=== PATIENT | male | born 1945 | race Two or more races ===

== ENCOUNTER 2017-11-06 13:54 | Emergency (ER) | payer OTHER, MEDICAID ==
[~2017-11-06] VITALS: Ht 167.6 cm; Wt 77.1 kg
[2017-11-06 15:05] VITALS: BP 134/75
== END 2017-11-06 16:19 | disposition home or self-care (01) ==
LOC: ER 13:59
DX: R33.9 Retention of urine, unspecified (principal)
CPT/HCPCS: 51702

== ENCOUNTER 2017-11-16 20:38 | Emergency (ER) | payer OTHER, MEDICAID ==
[~2017-11-16] VITALS: Ht 167.6 cm; Wt 81.2 kg
[2017-11-17 02:45] VITALS: BP 141/82
[2017-11-17 04:03] LABS: Urine Bacteria FEW /hpf (None Seen); Urine Blood TRACE /uL (Negative); Urine Hyaline Cast FEW /lpf (0 - 2); Urine Specific Gravity 1.013 (1.001-1.035); Urine WBC 7 /hpf (0 - 3)
== END 2017-11-17 04:09 | disposition home or self-care (01) ==
LOC: ER 20:38
DX: T83.89XA Other specified complication of genitourinary prosthetic devices, implants and grafts, initial encounter (principal); N40.0 Benign prostatic hyperplasia without lower urinary tract symptoms; N39.0 Urinary tract infection, site not specified
CPT/HCPCS: 81001

== ENCOUNTER 2017-12-08 00:43 | Emergency (ER) | payer OTHER, MEDICAID ==
[~2017-12-08] VITALS: Ht 167.6 cm; Wt 81.2 kg
[2017-12-08 00:59] VITALS: BP 157/76
[2017-12-08 01:28] LABS: Basophils # (auto) 0 uL; Basophils % (auto) 0.1 % (0.0-2.0); Eosinophils # (auto) 0.1 uL; Eosinophils % (auto) 0.8 % (0.0-7.0); Hemoglobin 13.6 g/dL (13.5-17.5); Lymphocytes # (auto) 2.2 uL; Lymphocytes % (auto) 27.5 % (10.0-50.0); Mean Corpuscular Volume 91.2 fL (80.0-100.0); Monocytes # (auto) 0.7 uL; Monocytes % (auto) 9.4 % (0.0-12.0); Neutrophils # (auto) 4.9 uL; Neutrophils % (auto) 62.2 % (37.0-80.0); Nucleated Red Blood Cells % 0.1 %; Platelet Count (auto) 259 10^3/uL (140-450); Red Blood Cells 4.39 10^6/uL (4.5-5.90); Red Cell Distribution Width 13.5 % (11.8-14.3); White Blood Cell 7.8 10^3/uL (4.4-10.8)
[2017-12-08 01:54] LABS: Albumin 3.8 g/dL (3.4-5.0); BUN/Creatinine Ratio 13.2; Calcium 8.5 mg/dL (8.5-10.1); Potassium 3.7 mmol/L (3.5-5.1)
[2017-12-08 01:57] LABS: Bilirubin, Total 0.9 mg/dL (0.2-1.0); Total Protein 7.9 g/dL (6.4-8.2)
[2017-12-08 03:32] LABS: Urine Bacteria NONE SEEN /hpf (None Seen); Urine Blood Negative /uL (Negative); Urine Specific Gravity 1.007 (1.001-1.035); Urine WBC 4 /hpf (0 - 3)
== END 2017-12-08 06:00 | disposition home or self-care (01) ==
LOC: ER 00:43
DX: N40.1 Benign prostatic hyperplasia with lower urinary tract symptoms (principal); R33.8 Other retention of urine
CPT/HCPCS: 36415; 74176; 80053; 81001; 85025